=== PATIENT | male | born 1975 | race Hispanic/Latino ===

== ENCOUNTER 2017-12-15 01:02 | Emergency (ER) | payer BC, OTHER ==
[2017-12-15] MEDS ORDERED: LIDOCAINE 1% MPF 5 ML VIAL ONE (01:25)
[2017-12-15] MEDS ORDERED: CEFAZOLIN/SWI 1gm 1 GM/10 ML SYR ONE (01:40)
[2017-12-15] MEDS ORDERED: HYDROCODONE/APAP 10/325 TAB ONE (03:23)
[2017-12-15] MEDS ORDERED: TETANUS & DIPHTHERIA TOX,ADULT 0.5 ML VIAL ONE (03:24)
--- NOTE | 2017-12-15 03:28 | ER ---
Nurse's Notes [facility] Name: Buster Thayer Jr Age: 42 yrs Sex: Male : 1975 Arrival Date: 12/15/2017 Time: 01:04 Bed 26 Private MD: Manisha Jimenez H Diagnosis: Displaced fracture of distal phalanx of left middle finger;Displaced fracture of distal phalanx of left index finger;Fingertip lacerations of left 2nd and 3rd digits of hand Presentation: 12/15 01:15 Presenting complaint: Patient states: he was at work tonight and smashed his right hand bb between a flange and a pipe approx midnight tonight. Transition of care: patient was not received from another setting of care. Onset of symptoms was December 15, 2017 at 00:00. Risk Assessment: Do you want to hurt yourself or someone else? Patient reports no desire to harm self or others. Initial Sepsis Screen: Does the patient meet any 2 criteria? No. Patient's initial sepsis screen is negative. Does the patient have a suspected source of infection? No. Patient's initial sepsis screen is negative. Care prior to arrival: Medication(s) given: Tylenol, 800 mg. 01:15 Method Of Arrival: Ambulatory bb 01:15 Acuity: FADIA 2 bb Triage Assessment: 01:45 General: Appears in no apparent distress. well groomed, well developed, well nourished, rk2 Behavior is calm, cooperative. Pain: Complains of pain in right hand. Neuro: Level of Consciousness is alert, obeys commands, Oriented to person, place, time, situation. Respiratory: Airway is patent Respiratory effort is even, unlabored, Respiratory pattern is regular, symmetrical. Musculoskeletal: Bony deformity noted of right hand. Injury Description: Crush injury sustained to 2nd and 3rd fingers on right hand. Historical: - Allergies: 01:18 Morphine; bb - Home Meds: 01:18 Lisinopril Oral [Active]; Propranolol Oral [Active]; bb - PMHx: 01:18 Hypertension; bb - PSHx: 01:18 None; bb - Immunization history:: Adult Immunizations up to date, Last tetanus immunization: unknown. - Social history:: Smoking status: Patient/guardian denies using tobacco, Patient/guardian denies using alcohol, street drugs. - Ebola Screening: : No symptoms or risks identified at this time. - Family history:: not pertinent. - Hospitalizations: : No recent hospitalization is reported. Screenin:44 Abuse screen: Denies threats or abuse. Nutritional screening: No deficits noted. rk2 Tuberculosis screening: No symptoms or risk factors identified. Fall Risk None identified. Assessment: 02:05 Reassessment: Wounds irrigated. rk2 03:37 Reassessment: Pt. BP elevated \T\ DC... provider aware, okay to DC. Pt. is to take his rk2 own meds. Vital Signs: 01:18 BP 216 / 91; Pulse 74; Resp 18 S; Temp 98.7(O); Pulse Ox 95% on R/A; Weight 99.34 kg bb (R); Height 5 ft. 11 in. (180.34 cm) (R); Pain 3/10; 03:37 BP 211 / 116; Pulse 79; Resp 18; Pulse Ox 96% on R/A; rk2 01:18 Body Mass Index 30.54 (99.34 kg, 180.34 cm) bb ED Course: 01:04 Patient arrived in ED. am2 01:05 Manisha Jimenez DO is Private Physician. am2 01:17 Triage completed. bb 01:18 Arm band placed on Patient placed in an exam room, on a stretcher, on pulse oximetry. bb 01:22 Jean-Pierre Bruno MD is Attending Physician. rn 01:27 Florinda Landry RN is Primary Nurse. rk2 01:28 XRAY Hand RIGHT 3 View Sent. rk2 01:44 Patient has correct armband on for positive identification. Bed in low position. Call rk2 light in reach. 01:46 X-ray completed. Portable x-ray completed in exam room. Patient tolerated procedure kw well. 01:47 XRAY Hand RIGHT 3 View In Process Unspecified. EDMS 03:38 No provider procedures requiring assistance completed. IV discontinued. 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 Lot #: [id number]. } Route: IM; Site: left deltoid; Outcome: 03:27 Discharge ordered by . rn 03:38 Discharged to home ambulatory. rk2 03:38 Condition: good 03:38 Discharge instructions given to patient, Prescriptions given X 3. 03:39 Patient left the ED. rk2 Signatures: Dispatcher [employer] EDGayle Chavez, RN RN Jean-Pierre Payan MD MD rn Whitley, Kimberlee kw Moreno, Amanda am2 Kidder, Rhonda, RN RN rk2
--- NOTE | 2017-12-15 03:28 | EDPHYS ---
Physician Documentation [facility] Name: Buster Thayer Jr Age: 42 yrs Sex: Male : 1975 Arrival Date: 12/15/2017 Time: 01:04 Bed 26 Private MD: Manisha Jimenez H ED Physician Jean-Pierre Bruno HPI: 12/15 01:23 This 42 yrs old Male presents to ER via Ambulatory with complaints of Finger rn Injury. 01:23 Mechanism of injury: Crush injury:. Associated injuries: The patient sustained right rn hand. Onset: The symptoms/episode began/occurred just prior to arrival. The patient has not experienced similar symptoms in the past. Reports crush injury to right hand, [employer], between pipe and flange, is left handed, + laceration and crush injury, unknown tetanus.. Historical: - Allergies: 01:18 Morphine; bb - Home Meds: 01:18 Lisinopril Oral [Active]; Propranolol Oral [Active]; bb - PMHx: 01:18 Hypertension; bb - PSHx: 01:18 None; bb - Immunization history:: Adult Immunizations up to date, Last tetanus immunization: unknown. - Social history:: Smoking status: Patient/guardian denies using tobacco, Patient/guardian denies using alcohol, street drugs. - Ebola Screening: : No symptoms or risks identified at this time. - Family history:: not pertinent. - Hospitalizations: : No recent hospitalization is reported. ROS: 01:24 Constitutional: Negative for fever, chills, and weight loss, MS/Extremity: + right hand rn injury Exam: 01:24 Constitutional: This is a well developed, well nourished patient who is awake, alert, rn and in no acute distress. MS/ Extremity: Pulses equal, no cyanosis. Neurovascular intact. Right 2nd/3rd distal digits with crush injury to distal phalanges and nail bed lacerations, irregular, cannot probe to bone, jagged edges, + venous bleeding. Complete destruction of nail matrix, unable to salvage nail as completely avusled and prolapsed through dorsal finger tissue. Able to actively flex and extend affected fingers Vital Signs: 01:18 BP 216 / 91; Pulse 74; Resp 18 S; Temp 98.7(O); Pulse Ox 95% on R/A; Weight 99.34 kg bb (R); Height 5 ft. 11 in. (180.34 cm) (R); Pain 3/10; 03:37 BP 211 / 116; Pulse 79; Resp 18; Pulse Ox 96% on R/A; rk2 01:18 Body Mass Index 30.54 (99.34 kg, 180.34 cm) bb Laceration: 03:20 Wound Repair of 4cm ( 1.6in ) subcutaneous laceration to right 2nd digit. Distal rn neuro/vascular/tendon intact. Anesthesia: Digital block administered with 3 mls of 1% lidocaine. Wound prep: Extensive cleansing by nurse, Wound irrigation by nurse, Wound margin revised minimally, Wound debrided minimally, Copious irrigation. Skin closed with 17 4-0 Prolene using interrupted sutures and sterile technique. Dressed with 4x4's, pressure dressing. Patient tolerated well. 03:20 Wound Repair of 3cm ( 1.2in ) subcutaneous laceration to right 3rd digit. Irregularly rn shaped.. Distal neuro/vascular/tendon intact. Anesthesia: Digital block administered with 3 mls of 1% lidocaine. Wound prep: Extensive cleansing by nurse, Wound irrigation by nurse, Wound debrided minimally, Copious irrigation. Skin closed with 11 4-0 Prolene using interrupted sutures and sterile technique. Dressed with 4x4's, pressure dressing. Patient tolerated well. MDM: 01:22 Patient medically screened. rn 03:20 Differential diagnosis: extremity fracture, finger lacerations. Data reviewed: vital rn signs, nurses notes, radiologic studies, plain films, and as a result, I will discharge patient. Counseling: I had a detailed discussion with the patient and/or guardian regarding: the historical points, exam findings, and any diagnostic results supporting the discharge/admit diagnosis, radiology results, the need for outpatient follow up, to return to the emergency department if symptoms worsen or persist or if there are any questions or concerns that arise at home. Response to treatment: the patient's symptoms have markedly improved after treatment, and as a result, I will discharge patient. Special discussion: I discussed with the patient/guardian in detail that at this point there is no indication for admission to the hospital. It is understood, however, that if the symptoms persist or worsen the patient needs to return immediately for re-evaluation. Based on the history and exam findings, there is no indication for further emergent testing or inpatient evaluation. I discussed with the patient/guardian the need to see the hand specialist for further evaluation of the symptoms. 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 Exp: rk2 02/18/2020. Lot #: [id number]. } Route: IM; Site: left deltoid; Disposition: 12/15/17 03:27 Discharged to Home. Impression: Displaced fracture of distal phalanx of left middle finger, Displaced fracture of distal phalanx of left index finger, Fingertip lacerations of left 2nd and 3rd digits of hand. - Condition is Stable. - Discharge Instructions: Finger Fracture, Fingertip Injuries and Amputations. - Prescriptions for Augmentin 875- 125 mg Oral Tablet - take 1 tablet by ORAL route every 12 hours for 10 days; 20 tablet. Ibuprofen 800 mg Oral Tablet - take 1 tablet by ORAL route every 12 hours As needed take with food; 20 tablet. Tylenol- Codeine #3 300-30 mg Oral Tablet - take 1 tablet by ORAL route every 6 hours As needed; 20 tablet. - Medication Reconciliation Form, Thank You Letter, Antibiotic Education, Prescription Opioid Use form. - Follow up: Private Physician; When: 1 - 2 days; Reason: Wound Recheck, Recheck today's complaints, Continuance of care, Re-evaluation by your physician. - Problem is new. - Symptoms have improved. Signatures: Dispatcher [employer] EDGayle Chavez RN RN bb Nieto, Roman, MD MD rn Kidder, Rhonda, RN RN rk2 Corrections: (The following items were deleted from the chart) 03:20 01:24 Constitutional: This is a well developed, well nourished patient who is awake, rn alert, and in no acute distress. MS/ Extremity: Pulses equal, no cyanosis. Neurovascular intact. Right 2nd/3rd distal digits with crush injury to distal phalanges and nail bed lacerations. rn 03:30 01:24 Constitutional: This is a well developed, well nourished patient who is awake, rn alert, and in no acute distress. MS/ Extremity: Pulses equal, no cyanosis. Neurovascular intact. Right 2nd/3rd distal digits with crush injury to distal phalanges and nail bed lacerations, irregular, cannot probe to bone, jagged edges, + venous bleeding rn 03:39 03:27 12/15/2017 03:27 Discharged to Home. Impression: Displaced fracture of distal rk2 phalanx of left middle finger; Displaced fracture of distal phalanx of left index finger; Fingertip lacerations of left 2nd and 3rd digits of hand. Condition is Stable. Forms are Medication Reconciliation Form, Thank You Letter, Antibiotic Education, Prescription Opioid Use. Follow up: Private Physician; When: 1 - 2 days; Reason: Wound Recheck, Recheck today's complaints, Continuance of care, Re-evaluation by your physician. Problem is new. Symptoms have improved. rn 06:46 01:24 Constitutional: This is a well developed, well nourished patient who is awake, rn alert, and in no acute distress. MS/ Extremity: Pulses equal, no cyanosis. Neurovascular intact. Right 2nd/3rd distal digits with crush injury to distal phalanges and nail bed lacerations, irregular, cannot probe to bone, jagged edges, + venous bleeding. Complete destruction of nail matrix, unable to salvage nail as completely avusled and prolapsed through dorsal finger tissue. rn
[2017-12-15 03:41] VITALS: TEMP 98.7
[2017-12-15 03:44] VITALS: BP 211/116; O2SAT 96
--- NOTE | 2017-12-15 08:30 | RAD REPORT ---
EXAM DESCRIPTION: RAD - Hand Right 3 View - 12/15/2017 1:47 am CLINICAL HISTORY: Right hand pain status post injury FINDINGS: Comminuted markedly displaced fractures involve the distal aspects of the second and third distal phalanges. No dislocation is seen
== END 2017-12-15 03:39 | disposition home or self-care (01) ==
LOC: ER 01:02
PROC: 0HQGXZZ Repair Left Hand Skin, External Approach (ICD-10-PCS; principal; 2017-12-15)
DX: S62.633B Displaced fracture of distal phalanx of left middle finger, initial encounter for open fracture (principal); S62.631B Displaced fracture of distal phalanx of left index finger, initial encounter for open fracture; I10 Essential (primary) hypertension; W23.0XXA Caught, crushed, jammed, or pinched between moving objects, initial encounter; Y93.89 Activity, other specified; Y92.9 Unspecified place or not applicable; Y99.9 Unspecified external cause status; Z23 Encounter for immunization
CPT/HCPCS: 90714; 96365; 96366; 99284; J0690